=== PATIENT | female | born 1995 | race Caucasian/White ===

== ENCOUNTER 2022-02-27 13:02 | Emergency (ER) | payer OTHER | END 2022-02-27 14:55 | disposition home or self-care (01) | LOC: FER 13:02 | DX: O9A.211 Injury, poisoning and certain other consequences of external causes complicating pregnancy, first trimester (principal); S06.0X0A Concussion without loss of consciousness, initial encounter; O99.331 Smoking (tobacco) complicating pregnancy, first trimester; F17.290 Nicotine dependence, other tobacco product, uncomplicated; Z3A.01 Less than 8 weeks gestation of pregnancy; Z88.0 Allergy status to penicillin; W22.8XXA Striking against or struck by other objects, initial encounter | CPT/HCPCS: 93005; 99283 ==